=== PATIENT | male | born 1975 | race Caucasian/White ===

== ENCOUNTER 2023-01-19 11:35 | Emergency (ER) | payer BC, SELFPAY ==
--- NOTE | ~2023-01-19 | XR_ITS ---
EXAMINATION: XR HAND, LEFT CLINICAL INFORMATION: Nail and index finger COMPARISON: None available. TECHNIQUE: PA, lateral, and oblique views of the left hand. FINDINGS: There is a transverse oriented nail traversing through the distal first digit likely intraarticular. /Intraosseous. The tip of the nail may be within the soft tissues of distal third digit. The soft tissues are normal. No additional bony abnormality seen. XR/XR hand LT 2V IMPRESSION: There is a transverse oriented nail traversing through the distal first digit. The tip of the nail may be within the soft tissues of the distal third digit. No additional bony abnormality seen.
--- NOTE | 2023-01-19 11:46 | ED.UPPEXIN ---
HPI - Extremity Injury (Upper) General Chief Complaint: Extremity Injury, Upper <TAY Richardson - Last Filed: 01/19/23 11:52> Stated Complaint: nail in finger <TAY Richardson - Last Filed: 01/19/23 11:52> Time Seen by Provider: 01/19/23 12:44 <TAY Richardson - Last Filed: 01/19/23 11:52> History of Present Illness HPI narrative: Patient complains of nail shot into the left index finger at home when he was putting in some molding, pain is mild there is no limit on movement there is no numbness weakness or tingling no other injury <TAY Ordaz - Last Filed: 01/19/23 15:03> Related Data Home Medications: Previous Rx's Medication Instructions Recorded cephalexin 500 mg capsule 500 mg PO Q8H 3 days #9 caps 01/19/23 <TAY Richardson - Last Filed: 01/19/23 11:52> Allergies/Adverse Reactions: Allergies Allergy/AdvReac Type Severity Reaction Status Date / Time No Known Allergies Allergy Verified 01/19/23 11:48 <TAY Richardson - Last Filed: 01/19/23 11:52> [facility] Past Medical History Source: nursing notes reviewed <TAY Ordaz - Last Filed: 01/19/23 15:03> Social History Social History: Social History Advance Directives: No Advance Directives Information Provided: No <TAY Richardson - Last Filed: 01/19/23 11:52> Physical Exam Vital Signs: Vital Signs: Last Vital Signs Temp 99.2 F 01/19/23 11:49 Pulse 76 01/19/23 11:49 Resp 18 01/19/23 11:49 BP 168/103 H 01/19/23 11:49 Pulse Ox 96 01/19/23 11:49 O2 Del Method Room Air 01/19/23 11:49 BMI result Body Mass Index 32.5 <TAY Richardson - Last Filed: 01/19/23 11:52> Vital Signs: Last Vital Signs Temp 99.2 F 01/19/23 11:49 Pulse 76 01/19/23 11:49 Resp 18 01/19/23 11:49 BP 168/103 H 01/19/23 11:49 Pulse Ox 96 01/19/23 11:49 O2 Del Method Room Air 01/19/23 11:49 BMI result Body Mass Index 32.5 <TAY Ordaz Last Filed: 01/19/23 15:03> General appearance no distress Head is normocephalic atraumatic Neck is supple Respiratory no distress Extremities full range of motion x4 Left index finger in the dorsum of the distal phalanx left index finger there is a nail that has gone through and through the soft tissues, there is full extension and full flexion, sensation is intact distal, no active bleeding Neuro no focal motor sensory deficits <TAY Ordaz Last Filed: 01/19/23 15:03> Course Course Course Narrative: RME--47yo M with no sig PMHx c/o nail through L index finger s/p working with wood [employer]. Tetanus unknown. Superficial 2 in thin nail through & through volar aspect of L index finger DIP. Bleeding controlled TDap and XR ordered <TAY Richardson Last Filed: 01/19/23 11:52> RME--47yo M with no sig PMHx c/o nail through L index finger s/p working with wood [employer]. Tetanus unknown. Superficial 2 in thin nail through & through volar aspect of L index finger DIP. Bleeding controlled TDap and XR ordered Digital block is provided with 6 cc of 1% lidocaine to good affect Cleansed with Betadine The nail was easily removed and it looked to be fully intact After removal of the nail the patient had full range of motion no evidence of extensor tendon injury and the wound is cleaned and bandaged X-ray did not show any fractures <TAY Ordaz Last Filed: 01/19/23 15:03> Medications Administered Discontinued Medications Generic Name Dose Route Start Last Admin Trade Name Freq PRN Reason Stop Dose Admin Cephalexin HCl 500 mg 01/19/23 13:44 01/19/23 14:00 Cephalexin 500 Mg Capsule PO 01/19/23 13:45 500 mg ONCE ONE Administration Diphtheria/Tetanus/Acell Pertussis 0.5 ml 01/19/23 11:48 01/19/23 12:32 Diphth,Pertus(Acell),Tet Adult 0.5 Ml Syringe IM 01/19/23 11:49 0.5 ml .ONCE ONE Administration Lidocaine HCl 5 ml 01/19/23 12:53 01/19/23 13:26 Lidocaine Hcl 1 % Mpf 5 Ml Vial SUBCUT 01/19/23 12:54 5 ml ONCE ONE Administration Lidocaine HCl 5 ml 01/19/23 12:53 01/19/23 13:25 Lidocaine Hcl 1 % Mpf 5 Ml Vial SUBCUT 01/19/23 12:54 5 ml ONCE ONE Administration <TAY Richardson - Last Filed: 01/19/23 11:52> Medications Administered Discontinued Medications Generic Name Dose Route Start Last Admin Trade Name Edinq PRN Reason Stop Dose Admin Cephalexin HCl 500 mg 01/19/23 13:44 01/19/23 14:00 Cephalexin 500 Mg Capsule PO 01/19/23 13:45 500 mg ONCE ONE Administration Diphtheria/Tetanus/Acell Pertussis 0.5 ml 01/19/23 11:48 01/19/23 12:32 Diphth,Pertus(Acell),Tet Adult 0.5 Ml Syringe IM 01/19/23 11:49 0.5 ml .ONCE ONE Administration Lidocaine HCl 5 ml 01/19/23 12:53 01/19/23 13:26 Lidocaine Hcl 1 % Mpf 5 Ml Vial SUBCUT 01/19/23 12:54 5 ml ONCE ONE Administration Lidocaine HCl 5 ml 01/19/23 12:53 01/19/23 13:25 Lidocaine Hcl 1 % Mpf 5 Ml Vial SUBCUT 01/19/23 12:54 5 ml ONCE ONE Administration <TAY Ordaz - Last Filed: 01/19/23 15:03> Discharge Plan Discharge Clinical Impression: Foreign body of left index finger <TAY Richardson - Last Filed: 01/19/23 11:52> Patient Disposition: Home, Self-Care <TAY Richardson - Last Filed: 01/19/23 11:52> Additional Instructions: The nail was easily removed, it looked to be intact so I do not think there is any pieces left in the wound Because the length of the wound cannot be cleaned this is high risk for infection so we are treating for 3 days with antibiotic to try to prevent infection Return any time for redness swelling pain discharge from wound red stripe up arm, any sign of infection or any worse condition or any concerns X-ray did not show any broken bones You got a tetanus shot today <TAY Richardson - Last Filed: 01/19/23 11:52> Prescriptions: New cephalexin 500 mg capsule 500 mg PO Q8H 3 Days Qty: 9 0RF <TAY Richardson - Last Filed: 01/19/23 11:52> Interventions: ED Discharge Assessment Last Done: 01/19/23 14:05 <TAY Richardson - Last Filed: 01/19/23 11:52> Discharge Date/Time: 01/19/23 14:05 <TAY Richardson - Last Filed: 01/19/23 11:52>
[2023-01-19 11:49] VITALS: BP 168/103; PULSE 76; RESP 18; TEMP 37.3; O2SAT 96; BMI 32.5
[2023-01-19] MEDS: Diphth,Pertus(ACell),Tet Adult 0.5 ML SYRINGE IM (12:32)
[2023-01-19] MEDS: Lidocaine HCl 1 % MPF 5 ML VIAL SUBCUT ×2 (13:25→13:26)
--- NOTE | 2023-01-19 13:45 | ED.EXTPRO ---
HPI - Extremity Problem General Chief complaint: Extremity Injury, Upper Stated complaint: nail in finger Time Seen by Provider: 01/19/23 12:44 History of Present Illness HPI Narrative: Patient complains of nail through the back of the left index finger from nail gun just an hour ago, no numbness no weakness no tingling, no other injury no other complaint Related Data Previous Rx's Medication Instructions Recorded cephalexin 500 mg capsule 500 mg PO Q8H 3 days #9 caps 01/19/23 Allergies Allergy/AdvReac Type Severity Reaction Status Date / Time No Known Allergies Allergy Verified 01/19/23 11:48 [facility] Past Medical History Source: nursing notes reviewed Social History Social History Advance Directives: No Advance Directives Information Provided: No Physical Exam Vital Signs: Vital Signs: Last Vital Signs Temp 99.2 F 01/19/23 11:49 Pulse 76 01/19/23 11:49 Resp 18 01/19/23 11:49 BP 168/103 H 01/19/23 11:49 Pulse Ox 96 01/19/23 11:49 O2 Del Method Room Air 01/19/23 11:49 BMI result Body Mass Index 32.5 General appearance no distress comfortable The left index finger the distal phalanx there is a nail through the dorsum of the finger through and through only at the dorsum, there is full range of motion full extension full flexion and sensation is intact no evidence of a tendon injury or deficit Rest of the hand exam is normal Course Course Course Narrative: Nail through the dorsal distal phalanx of the finger, no tendon deficit, sensation intact Procedure note 1% lidocaine 6 cc was used as a digital block with good anesthesia The nail was easily removed with a forceps and looked to be fully intact so foreign body very unlikely After extraction reexamination the patient can still fully extend and flex the finger with normal sensation, bandage was applied and patient discharged Medications Administered Discontinued Medications Generic Name Dose Route Start Last Admin Trade Name Freq PRN Reason Stop Dose Admin Diphtheria/Tetanus/Acell Pertussis 0.5 ml 01/19/23 11:48 01/19/23 12:32 Diphth,Pertus(Acell),Tet Adult 0.5 Ml Syringe IM 01/19/23 11:49 0.5 ml .ONCE ONE Administration Lidocaine HCl 5 ml 01/19/23 12:53 01/19/23 13:26 Lidocaine Hcl 1 % Mpf 5 Ml Vial SUBCUT 01/19/23 12:54 5 ml ONCE ONE Administration Lidocaine HCl 5 ml 01/19/23 12:53 01/19/23 13:25 Lidocaine Hcl 1 % Mpf 5 Ml Vial SUBCUT 01/19/23 12:54 5 ml ONCE ONE Administration Discharge Plan Discharge Clinical Impression: Foreign body of left index finger Patient Disposition: Home, Self-Care Additional Instructions: The nail was easily removed, it looked to be intact so I do not think there is any pieces left in the wound Because the length of the wound cannot be cleaned this is high risk for infection so we are treating for 3 days with antibiotic to try to prevent infection Return any time for redness swelling pain discharge from wound red stripe up arm, any sign of infection or any worse condition or any concerns You got a tetanus shot today Prescriptions: New cephalexin 500 mg capsule 500 mg PO Q8H 3 Days Qty: 9 0RF
[2023-01-19] MEDS: cephALEXin 500 MG CAPSULE PO (14:00)
== END 2023-01-19 14:05 | disposition home or self-care (01) ==
PROVIDERS: Emergency Provider Emergency Medicine
DX: S61.241A Puncture wound with foreign body of left index finger without damage to nail, initial encounter (principal); W45.0XXA Nail entering through skin, initial encounter; W29.4XXA Contact with nail gun, initial encounter; Y93.89 Activity, other specified; Y92.019 Unspecified place in single-family (private) house as the place of occurrence of the external cause; Y99.9 Unspecified external cause status
CPT/HCPCS: 64450; 73120; 90471; 90715; 99282; 99284